=== PATIENT | male | born 1940 | race Caucasian/White ===

== ENCOUNTER 2016-07-31 05:39 | Inpatient (IN) | payer OTHER ==
--- NOTE | 2016-07-11 11:59 | PAT Medication Instructions ---
Service Date Jul 11, 2016. Current Home Medication List Flaxseed (Linseed) (Flaxseed Oil), 1,200 MG PO QAM Lisinopril/Hctz (Zestoretic 20MG/25MG), 1 TAB PO QAM [Dr. Delmi Berry Pkt], 1 PKT PO DAILY Medication Instructions For Your Scheduled Surgery [Dr. Delmi Berry Pkt], 1 PKT PO DAILY (per surgeon instructions) - Hold the following medications 2 weeks prior to surgery: Flaxseed (Linseed) (Flaxseed Oil), 1,200 MG PO QAM - Hold the following medications the morning of surgery: Lisinopril/Hctz (Zestoretic 20MG/25MG), 1 TAB PO QAM If you have any questions please call us at [phone] (Sheryl Pappas PA-C) or [phone] or [phone]
--- NOTE | 2016-07-11 12:45 | DIAGNOSTIC IMAGING REPORT ---
CHEST 2 VIEWS ROUTINE CLINICAL HISTORY: Preoperative chest COMPARISON STUDY: No previous studies for comparison. FINDINGS: The cardiac and mediastinal contours are normal. There is no evidence of focal pulmonary consolidation. There is no evidence of failure. No pleural effusions are visualized.[ IMPRESSION: No active disease in the chest. Electronically signed by: Jesus Craig M.D. 07/11/2016 12:42 PM Dictated Date/Time: 07/11/2016 12:42 PM
[2016-07-11 12:52] LABS: BASO % 0.9 %; BASO ABS # 0.06 K/uL (0-0.2); COMPLETE YES; HEMATOCRIT 44.6 % (42-52); IG% 0.2 %; LYMPH % 31.8 %; LYMPH ABS # 2.11 K/uL (1.2-3.4); MEAN CELL VOLUME 90.5 fL (80-100); MEAN CORPUSCULAR HEMOGLOBIN 30.6 pg (25-34); MEAN CORPUSCULAR HGB CONC 33.9 g/dl (32-36); MEAN PLATELET VOLUME 9.5 fL (7.4-10.4); MONO % 9.6 %; NEUT % 55.5 %; PLATELET COUNT 270 K/uL (130-400); RED BLOOD COUNT 4.93 M/uL (4.7-6.1); WHITE BLOOD COUNT 6.64 K/uL (4.8-10.8)
[2016-07-11 12:53] LABS: PARTIAL THROMBOPLASTIN RATIO 1.3; PROTHROMBIN TIME (PATIENT) 10.7 SECONDS (9.0-12.0)
[2016-07-11 13:08] LABS: URINE APPEARANCE CLEAR (CLEAR); URINE BILIRUBIN NEG (NEG); URINE COLOR YELLOW; URINE EPITHELIAL CELL AUTO 0-5 /lpf (0-5); URINE NITRITE NEG (NEG); URINE SPECIFIC GRAVITY 1.013 (1.000-1.030); UROBILINOGEN NEG (NEG); ZZUR CULT IF INDIC CLEAN CATCH NO
[2016-07-11 13:09] LABS: MANUAL MICROSCOPIC REQUIRED? NO; REVIEW REQ? NO
[2016-07-11 13:13] LABS: BUN/CREATININE RATIO 16.4 (10-20); CALCIUM 8.7 mg/dl (8.5-10.1); CREATININE 1.5 mg/dl (0.60-1.40); POTASSIUM 4.2 mmol/L (3.5-5.1)
[~2016-07-31] VITALS: Ht 167.6 cm; Wt 86.0 kg
[2016-07-31] VITALS (8 sets, daily range): BP systolic 100–159; BP diastolic 61–82; PULSE 61–79; TEMP 36.2–36.5; O2SAT 95–98; Ht 167.6 cm; Wt 86.0 kg
[~2016-07-31 05:39] MED LIST: FLAX12003 PO; LISI-788 PO; [UNRECOGNIZED DRUG - REMARK] PO
[2016-07-31] MEDS ORDERED: CEFAZOLIN 2000 MG/60 ML D5W 60 ML IV SCH (06:00)
[2016-07-31] MEDS ORDERED: LACTATED RINGER'S 1000ML 500 ML IV ONE (06:00)
[2016-07-31] MEDS ORDERED: METOCLOPRAMIDE HCL 10 MG TAB PO SCH (06:00)
[2016-07-31] MEDS ORDERED: OXYCODONE HCL 10 MG TABCR (OXYCONTIN) PO SCH (06:00)
[2016-07-31] MEDS ORDERED: ROPIVACAINE 5MG/ML 30 ML 150 MG, BUPIVACAINE/EPINEPHR 0.5% MPF 30 ML, KETOROLAC TROMETH... INFIL SCH ×7 (06:00)
[2016-07-31] MEDS ORDERED: FAMOTIDINE 20 MG TAB PO SCH (06:00)
[2016-07-31] MEDS ORDERED: DEXAMETHASONE 4 MG TAB PO SCH (06:00)
[2016-07-31] MEDS ORDERED: CeleBREX 200 MG CAP PO SCH (06:00)
[2016-07-31] MEDS ORDERED: POLYMYXIN B SULFATE 100,000 UNITS in NSS 100ML IR SCH (06:00)
[2016-07-31] MEDS ORDERED: VANCOMYCIN INJ 400 MG in NSS 100ML IR SCH (06:00)
[2016-07-31] MEDS ORDERED: ACETAMINOPHEN 500 MG TAB PO SCH (06:00)
[2016-07-31] MEDS ORDERED: GABAPENTIN 300 MG CAP PO SCH (06:00)
[2016-07-31] MEDS ORDERED: LACTATED RINGER'S 1000ML 1,000 ML IV SCH ×2 (06:00)
[2016-07-31] MEDS: TRANEXAMIC ACID INJ 1,000 MG in SODIUM CHLORIDE 0.9% 100ML 100 ML IV SCH ×2 (06:30→08:21)
[2016-07-31] MEDS ORDERED: BUPIVACAINE 0.25% 30 ML VIAL ONE (06:31)
[2016-07-31] MEDS ORDERED: BUPIVACAINE 0.5 % 5 MG/1 ML PF 10ML VIAL ONE (06:31)
--- NOTE | 2016-07-31 06:53 | History & Physical Bridge Note ---
H&P Re-Evaluation Bridge Note: I have examined the patient, reviewed the History & Physical and in the interval since the performance of the History & Physical I have noted the following changes of clinical significance: No changes noted
[2016-07-31] MEDS ORDERED: ORTHO JOINT ANESTHETIC ONE (07:00)
[2016-07-31] MEDS ORDERED: POVIDONE-IODINE OP SOLN 30 ML BTL ONE (07:01)
[2016-07-31] MEDS ORDERED: BUPIVACAINE/EPINEPHRINE 0.25% 1:200,000 30 ML VIAL ONE (07:01)
[2016-07-31] MEDS ORDERED: BACITRACIN 50000 UNIT VIAL ONE (07:02)
[2016-07-31] MEDS ORDERED: MIDAZOLAM HCL 1 MG/ML 2ML VIAL ONE (07:03)
[2016-07-31] MEDS ORDERED: PROPOFOL IV EMULSION 10 MG/ML 20 ML VIAL IV ONE (07:03)
[2016-07-31] MEDS ORDERED: LIDOCAINE HCL 2% 2 ML VIAL (20MG/ML) ONE (07:03)
[2016-07-31] MEDS ORDERED: FENTANYL CITRATE INJ 50 MCG/1 ML 2 ML VIAL ONE (07:03)
[2016-07-31] MEDS ORDERED: EpHEDrine SULFATE INJ 50 MG/ML AMP IV PRN (07:15)
[2016-07-31] MEDS ORDERED: FENTANYL CITRATE INJ 50 MCG/1 ML 2 ML VIAL IV PRN (07:15)
[2016-07-31] MEDS ORDERED: ONDANSETRON INJ 2 MG/ML 2 ML VIAL IV PRN ×2 (07:15→10:00)
[2016-07-31] MEDS ORDERED: ATROPINE SULFATE 0.1 MG/ML 5ML SYR IV PRN (07:15)
--- NOTE | 2016-07-31 07:23 | HISTORY & PHYSICAL EXAMINATION ---
DATE OF ADMISSION: 07/31/2016 CHIEF COMPLAINT: Bilateral knee pain, right greater than left. HISTORY OF PRESENT ILLNESS: Mr. Tilley is a 75-year-old male, with a history of bilateral knee pain. He rates his pain as 10/10. He has pain with his daily activities. He has limited standing and walking tolerance. The pain is worse with weightbearing. The patient has had injections, knee bracing, home exercise program and anti-inflammatories over the years without relief. He has failed conservative treatments and is scheduled for a staged total knee replacement. PAST MEDICAL HISTORY: Hypertension. He denies heart disease, diabetes or DVT. PAST SURGICAL HISTORY: Cataract extraction, vasectomy and lithotripsy. SOCIAL HISTORY: The patient denies alcohol or tobacco use. He lives in a single gabino home. He is and retired. FAMILY HISTORY: Negative for DVT. MEDICATIONS: Lisinopril 20/25 mg daily, flaxseed oil 1200 mg daily. ALLERGIES: None. REVIEW OF SYSTEMS: See HPI; 10 other systems reviewed were all negative. PHYSICAL EXAMINATION: VITAL SIGNS: Height 5 feet 6 inches, weight 191 pounds. BMI is 31. GENERAL: This is a well-developed, well-nourished male who is alert and oriented x3. Mood and affect are appropriate. HEENT: Normocephalic and atraumatic. Mucous membranes are moist and intact. NECK: Supple without lymphadenopathy. HEART: Regular rate and rhythm without murmurs, rubs or gallops. LUNGS: Clear to auscultation without wheezes or rhonchi. ABDOMEN: Soft and nontender. Bowel sounds are equal and active. EXTREMITIES: No ecchymosis, redness or warmth. He has varus deformity. Range of motion is from 3-120 degrees with +1 to 2 medial laxity. He is neurovascularly intact with +5/5 strength. X-RAY EXAMINATION: AP and lateral views show joint space narrowing and osteophyte formation mainly in the medial compartment. IMPRESSION: Degenerative joint disease, right knee. PLAN: The patient will be admitted for a right total knee arthroplasty. We will plan on aspirin for DVT prophylaxis. The patient will have [facility] for home physical therapy.
[2016-07-31] MEDS ORDERED: LABETALOL HCL IV 5 MG/ML 20ML IV ONE (09:22)
--- NOTE | 2016-07-31 09:47 | [facility] Post Operative Brief Note ---
Immediate Operative Summary Operative Date July 31, 2016. Pre-Operative Diagnosis Right Knee Degenerative Joint Disease Post-Operative Diagnosis Same as preop Procedure(s) Performed Right Total Knee Arthroplasty Surgeon Dr. Rosendo freeman Artificial Pearl Maker Surgeon(s) [place] PA-C Estimated Blood Loss 50 ml Findings djd Specimens A. Right Knee Bone and Tissue Complication(s) None Disposition Recovery Room / PACU
[2016-07-31] MEDS ORDERED: ALUMINUM/MAGNESIUM/SIMETH (MAALOX MAX) 30 ML UDC PO PRN (10:00)
[2016-07-31] MEDS ORDERED: SOD PHOSPHATE/SOD BIPHOSPHATE ENEMA 132 ML BTL PR PRN (10:00)
[2016-07-31] MEDS ORDERED: ZOLPIDEM TARTRATE 5 MG TAB PO PRN (10:00)
[2016-07-31] MEDS ORDERED: TRAMADOL HCL 50 MG TAB PO PRN (10:00)
[2016-07-31] MEDS ORDERED: TAMSULOSIN HCL 0.4 MG CAP PO PRN (10:00)
[2016-07-31] MEDS ORDERED: DiphenhydrAMINE HCL 50 MG/ML VIAL IV PRN (10:00)
[2016-07-31] MEDS ORDERED: KETOROLAC TROMETHAMINE 15 MG/ML VIAL IV. PRN (10:00)
[2016-07-31] MEDS ORDERED: MoRPHine SULFATE 2 MG/ML CARP IV PRN (10:00)
[2016-07-31] MEDS ORDERED: METOCLOPRAMIDE HCL INJ 5 MG/ML 2 ML VIAL IV PRN (10:00)
[2016-07-31] MEDS ORDERED: BISACODYL 10 MG SUPP PR PRN (10:00)
[2016-07-31] MEDS ORDERED: OXYCODONE HCL IR 5 MG TAB (IMMEDIATE RELEASE) PO PRN (10:00)
[2016-07-31] MEDS ORDERED: MAGNESIUM HYDROXIDE SUSP 30 ML UDC PO PRN (10:00)
--- NOTE | 2016-07-31 10:41 | Anesthesiology Progress Note ---
Anesthesia Post Op Note Date & Time July 31, 2016 at 10:41 Vital Signs Pain Intensity: 0 Vital Signs Past 12 Hours Date Time Temp Pulse Resp B/P Pulse Ox O2 Delivery O2 Flow Rate FiO2 07/31/16 10:30 67 12 110/61 95 Nasal Cannula 2 07/31/16 10:21 36.4 73 14 101/56 96 Nasal Cannula 2 07/31/16 06:36 36.5 73 16 159/82 96 Room Air Notes Mental Status: alert / awake / arousable, participated in evaluation Pt Amnestic to Procedure: Yes Nausea / Vomiting: adequately controlled Pain: adequately controlled Airway Patency, RR, SpO2: stable & adequate BP & HR: stable & adequate Hydration State: stable & adequate Neuraxial Anesthesia: was administered, sensory block is resolving Anesthetic Complications: no major complications apparent
--- NOTE | 2016-07-31 11:00 | DIAGNOSTIC IMAGING REPORT ---
RIGHT KNEE 1 OR 2 VIEWS ROUTINE CLINICAL HISTORY: Postoperative evaluation. COMPARISON: None FINDINGS: Alignment of the total right knee arthroplasty is anatomic. There is no fracture or unexpected radiopaque foreign body. Drains are in place. IMPRESSION: Expected findings following total right knee arthroplasty. Electronically signed by: Barry Ortiz M.D. 07/31/2016 10:59 AM Dictated Date/Time: 07/31/2016 10:59 AM
[2016-07-31] MEDS: D5W AND 1/2NSS + 20MEQ KCL 1,000 ML IV SCH ×2 (11:55→21:20)
[2016-07-31] MEDS: ACETAMINOPHEN 500 MG TAB PO SCH ×2 (13:34→21:12)
[2016-07-31] MEDS: CEFAZOLIN IV 2,000 MG in DEXTROSE 5% 50ML 50 ML IV SCH ×2 (15:42→23:58)
[2016-07-31] MEDS ORDERED: TRANEXAMIC ACID INJ 1,000 MG in SODIUM CHLORIDE 0.9% 100ML 100 ML IV SCH (16:00)
[2016-07-31] MEDS ORDERED: SENNA 8.6 MG TAB PO SCH (21:00)
[2016-07-31] MEDS: ASPIRIN 81 MG ECTAB PO SCH (21:11)
[2016-07-31] MEDS: OXYCODONE HCL 10 MG TABCR (OXYCONTIN) PO SCH (21:12)
--- NOTE | 2016-08-01 01:56 | OPERATIVE REPORT ---
DATE OF OPERATION: 07/31/2016 PREOPERATIVE DIAGNOSIS: Degenerative arthritis, right knee. POSTOPERATIVE DIAGNOSIS: Same. PROCEDURE: Right total knee with patient-matched implant. SURGEON: Dr. Awad. OUTSIDE PRODUCTION INSPECTOR: ANDRE Rodríguez. ANESTHESIA: Spinal. BLOOD LOSS: 50 mL REPLACEMENT FLUIDS: 1500 mL crystalloid. DRAINS: Hemovac x2. CULTURES: None. COMPLICATIONS: None. COMPONENTS USED: Felipe \T\ Nephew Jourloda knee system: Femur size 6, tibia size 6 x 12, patella size 35. NOTE: ANDRE Rodríguez, was present and assisted throughout due to the complicated nature of this case. He helped with preparation and setup, first assisted throughout, and personally closed the capsule, subcutaneous and skin layers, and applied the postop dressing. DESCRIPTION: Following satisfactory spinal, the patient was supine. Tourniquet was placed but not inflated. The lower extremity was prepared with ChloraPrep and draped sterilely. Following a surgical timeout, a midline incision was made with a median parapatellar arthrotomy. The knee showed grade 4 changes, most marked in the medial and patellofemoral compartments. The cruciate ligaments were excised. The patient-matched femoral block was applied. Femoral distal rotation and resection were set and completed. The 4-in-1 block was used to finish preparation of the femur. The patient-matched tibial block was applied. Tibial resection was completed. Patella was freehand cut. Soft tissue balancing was completed and a trial reduction showed good tensioning and stability on the collateral ligaments, stable range of motion, and the patella tracked well. The trial components were removed. The capsule was prepared with the orthopedic cocktail, and after irrigation, the components were cemented using Simplex G cement. A Betadine soak was performed. When the cement had hardened, the Betadine was irrigated. Two drains were placed. The arthrotomy was closed with a running suture of 0 V-Loc and reinforced with 1 Vicryl. The subcutaneous tissues were closed with 2-0 Vicryl, the skin with a running subcuticular stitch of 3-0 V-Loc. Dermabond and a dry dressing were applied. The patient was returned to his bed in stable condition. I attest to the content of the Intraoperative Record and any orders documented therein. Any exceptio ns are noted below.
[2016-08-01 03:25] VITALS: BP 117/57; PULSE 61; TEMP 36.3; O2SAT 97
[2016-08-01] MEDS: ACETAMINOPHEN 500 MG TAB PO SCH (05:18)
[2016-08-01 06:10] LABS: HEMATOCRIT 36.1 % (42-52); MEAN CELL VOLUME 89.8 fL (80-100); MEAN CORPUSCULAR HEMOGLOBIN 30.3 pg (25-34); MEAN CORPUSCULAR HGB CONC 33.8 g/dl (32-36); MEAN PLATELET VOLUME 9.4 fL (7.4-10.4); PLATELET COUNT 247 K/uL (130-400); RED BLOOD COUNT 4.02 M/uL (4.7-6.1); WHITE BLOOD COUNT 17.86 K/uL (4.8-10.8)
[2016-08-01 06:41] LABS: BUN/CREATININE RATIO 15.4 (10-20); CALCIUM 7.7 mg/dl (8.5-10.1); CREATININE 1.8 mg/dl (0.60-1.40); POTASSIUM 4.4 mmol/L (3.5-5.1)
--- NOTE | 2016-08-01 07:48 | Orthopedic Progress Note ---
Orthopedic Progress Note Date of Service August 01, 2016. Subjective Post OP Day: 1 Reports: feeling well, Denies: SOB, calf pain, chest pain, light headedness, nausea / vomiting Objective calves soft nontender, N/V intact, dressing C/D/I, A&O x3, toes mobile, hemovac drainage (200/150CC PER SHIFT) Date Time Temp Pulse Resp B/P Pulse Ox O2 Delivery O2 Flow Rate FiO2 08/01/16 03:25 36.3 61 16 117/57 97 Room Air 08/01/16 00:02 Room Air 07/31/16 23:05 36.3 62 18 107/64 95 Room Air 07/31/16 20:00 36.3 67 18 105/61 95 Room Air 07/31/16 19:00 Room Air 07/31/16 15:07 36.2 61 18 108/62 98 Nasal Cannula 2.0 07/31/16 13:13 36.4 67 16 100/63 97 2.0 07/31/16 12:10 36.3 68 16 108/65 97 Nasal Cannula 2.0 07/31/16 11:49 Nasal Cannula 2.0 07/31/16 11:40 67 16 108/62 97 Nasal Cannula 2.0 07/31/16 11:10 36.3 79 16 134/76 98 Nasal Cannula 2.0 07/31/16 11:00 71 14 115/69 97 Nasal Cannula 2 07/31/16 10:50 69 12 103/58 94 Nasal Cannula 2 07/31/16 10:40 36.0 68 17 102/53 97 Nasal Cannula 2 07/31/16 10:30 67 12 110/61 95 Nasal Cannula 2 07/31/16 10:21 36.4 73 14 101/56 96 Nasal Cannula 2 Laboratory Results 24 Hours: Test 08/01/16 05:20 Hematocrit 36.1 % Hemoglobin 12.2 g/dL Assessment & Plan Assessment: POD#1 RIGHT TKA Inhouse Planning Pain Management: Celebrex, Oxycontin, PO Tylenol, Oxy IR DVT Prophylaxis: TEDs, SCDs, ASA Discharge Planning Discharge Planning: home with home health ([facility] HOME TODAY WITH [facility])
[2016-08-01] MEDS ORDERED: RXC5 PO (07:50)
[2016-08-01] MEDS ORDERED: ASPEC81 PO (07:50)
[2016-08-01] MEDS ORDERED: ONDA8TAB6 PO (07:50)
[2016-08-01] MEDS ORDERED: CLB200 PO (07:50)
[2016-08-01] MEDS ORDERED: ACET-1138 PO (07:50)
[2016-08-01] MEDS ORDERED: MORP-157 PO (07:50)
[2016-08-01] MEDS ORDERED: SNK PO (07:50)
--- NOTE | 2016-08-01 07:51 | Discharge Instructions ---
Discharge Instructions Date of Service August 01, 2016. Admission Reason for Admission: Right Knee Degenerative Arthritis Discharge Discharge Diagnosis / Problem: SP RIGHT TKA Discharge Goals Goal(s): Decrease discomfort, Improve function, Increase independence Activity Recommendations Activity Limitations: per Instructions/Follow-up section . Instructions / Follow-Up Instructions / Follow-Up ACTIVITY RECOMMENDATIONS: SELF CARE INSTRUCTIONS AFTER TOTAL KNEE REPLACEMENT A. You may need to continue a physical therapy program after discharge from the hospital. There are several options available to you. Your doctor will assist you in selecting the best one for you. 1. An out-patient facility 2 to 3 times a week for therapy or home therapy. 2. Continue working on all exercises taught to you in the hospital. Your goals should be to increase bending of your knee to 90 degrees and beyond and to fully straighten your knee. B. You may progress at your own pace from walking with a walker or crutches to a cane; then to no assistive devices. C. Make walking a part of your daily routine. Be up as much as comfortable with rest periods throughout the day. Rest with leg elevation is very important. Use the ice wrap frequently for the first 3-4 weeks. D. There are no restrictions on activities. You may ride in a car, shop, participate in toll ticket clerk and all social activities. E. Wear the long elastic stockings (ANA hose) 20 hours a day for 2 weeks after surgery. They can be removed several times a day for laundering and for a bath. F. You may shower, no tub baths until cleared by your doctor. SPECIAL CARE INSTRUCTIONS: VERY IMPORTANT TO READ AND REVIEW A. There are a few signs you need to watch for after you are home. Call [facility] if you notice any of the followin. Increased severe knee pain. Some pain is expected especially when you exercise. 2. Increased swelling in your leg or knee; pain or swelling of the calf muscle in either lower leg. 3. Any fluid drainage from the incision. 4. Shortness of breath or chest pain. B. Please call [facility] at if you have any concerns or questions about your operation or recovery. The doctor or his nurse will return your call promptly. C. You must take antibiotics before dental work, bladder, bowel or other surgery. Your doctor will provide you with a permanent care to carry describing this precaution. IMPORTANT: * REMEMBER TO TAKE ASPIRIN, 81 MG, TWICE DAILY FOR 4 WEEKS UNLESS OTHERWISE DIRECTED. THIS IS YOUR BLOOD THINNER. * HIGH RISK PATIENTS MAY BE PRESCRIBED A STRONGER BLOOD THINNER. THIS WILL BE PROVIDED AT DISCHARGE. * CALL IF INCREASED PAIN, REDNESS, DRAINAGE OR FEVER GREATER THAT 101. * WEAR ANA HOSE 20 HOURS PER DAY FOR 2 WEEKS. DERMABOND Prineo- This is a mesh tape dressing that is covered with glue. It should remain in place until the incision is properly healed, usually 10-14 days. This dressing is designed to naturally slough off. You may trim the excess mesh tape as it peels off. Incision may be briefly wet in a shower. Dry immediately by blotting with a clean, dry towel. Do not bath or swim until instructed by your doctor. Do not scratch, rub, or pick at the dressing. Do not apply any topical ointments or lotions until dressing is completely removed and/or instructed by your doctor. There may be a small piece of suture material at one end of your incision. Do not pull or trim this. If it is bothersome or catching on clothing, you may cover it with a band-aid. FOLLOW UP VISIT: If appointment is not already scheduled: Please call [facility] to make a follow-up appointment for 2 weeks after your surgery at . Current Hospital Diet Patient's current hospital diet: Regular Diet Discharge Diet Recommended Diet: Regular Diet Procedures Procedures Performed: Right Total Knee Arthroplasty Pending Studies Studies pending at discharge: no Medical Emergencies . Who to Call and When: Medical Emergencies: If at any time you feel your situation is an emergency, please call 911 immediately. . Non-Emergent Contact Non-Emergency issues call your: Surgeon . "Provider Documentation" section prepared by Leah Reid. . VTE Core Measure Inpt VTE Proph given/why not?: Other Anticoagulation, T.E.DTalat Patel, SCD's [place] Drug Monitoring Program Search Results: patient reviewed within database, no issues identified
[2016-08-01] MEDS: D5W AND 1/2NSS + 20MEQ KCL 1,000 ML IV SCH (07:52)
--- NOTE | 2016-08-01 08:09 | Anesthesiology Progress Note ---
Anesthesia Post Op Note Date & Time August 01, 2016 at 08:08 Vital Signs Pain Intensity: 0.0 Vital Signs Past 12 Hours Date Time Temp Pulse Resp B/P Pulse Ox O2 Delivery O2 Flow Rate FiO2 08/01/16 03:25 36.3 61 16 117/57 97 Room Air 08/01/16 00:02 Room Air 07/31/16 23:05 36.3 62 18 107/64 95 Room Air Notes Mental Status: alert / awake / arousable, participated in evaluation Pt Amnestic to Procedure: Yes Nausea / Vomiting: adequately controlled Pain: adequately controlled Airway Patency, RR, SpO2: stable & adequate BP & HR: stable & adequate Hydration State: stable & adequate Neuraxial Anesthesia: sensory block resolved Anesthetic Complications: no major complications apparent
[2016-08-01 08:11] VITALS: BP 142/70; PULSE 72; TEMP 36.4; O2SAT 96
[2016-08-01] MEDS: OXYCODONE HCL 10 MG TABCR (OXYCONTIN) PO SCH (08:19)
[2016-08-01] MEDS: ASPIRIN 81 MG ECTAB PO SCH (08:19)
[2016-08-01] MEDS ORDERED: PANTOprazole SOD 40 MG TAB PO SCH (09:00)
[2016-08-01] MEDS ORDERED: MULTIVITAMIN TAB PO SCH (09:00)
[2016-08-01] MEDS ORDERED: LISINOPRIL/HCTZ 20/25MG TAB PO SCH (09:00)
[2016-08-01 09:12] VITALS: O2SAT 96
[2016-08-01 09:44] VITALS: BP 142/70; PULSE 72; TEMP 36.4; O2SAT 96
[2016-08-01 11:46] VITALS: BP 132/72; PULSE 68; TEMP 36.6; O2SAT 96
--- NOTE | 2016-08-03 01:16 | DISCHARGE SUMMARY ---
DISCHARGE DIAGNOSIS: Degenerative joint disease, right knee. SECONDARY DIAGNOSIS: Hypertension. CONSULTS: None. COMPLICATIONS: None. PROCEDURES: Right total knee arthroplasty performed by Dr. Jose Awad on 07/31/2016. BRIEF HISTORY: As dictated in history and physical. HOSPITAL SUMMARY: The patient was admitted on the above date and had the above-noted surgery performed, which he tolerated well. On the first postoperative day, he was feeling well and had no complaints. Calves were soft, nontender, neurovascularly intact. Dressings clean, dry and intact. Toes were mobile. Vital signs were stable. He was afebrile. Hemoglobin was 12.2 and he was started on physical therapy protocol and continued on DVT prophylaxis and pain management. He was progressing well with his physical therapy and remaining stable and it was felt he could be discharged to home with home health services on 08/01/2016. For further review, please see chart. LAB AND X-RAY DATA: As per chart. DISCHARGE INSTRUCTIONS: The patient was discharged to home in satisfactory condition on 08/01/2016. DIET: Regular. ACTIVITY: Follow TKA instruction sheets and special care instructions as noted. Follow up with Dr. Awad in 2 weeks. The patient to call for an appointment if one has not been made for you. DISCHARGE MEDICATIONS: Acetaminophen 1000 mg p.o. q. 8 hours, aspirin 81 mg p.o. b.i.d., Celebrex 200 mg p.o. every day, morphine sulfate 15 mg p.o. q. 12 hours, Zofran 8 mg p.o. q. 8 hours p.r.n., oxycodone 5-10 mg p.o. q. 4 hours p.r.n., and Senna 17.2 mg p.o. at bedtime. Resume taking flaxseed 1200 mg p.o. q.a.m., Zestoretic 20/25 one tab p.o. q.a.m. and Dr Awad vitamin pack 1 tab p.o. daily. MTDD
[2016-08-03] MEDS ORDERED: CeleBREX 200 MG CAP PO SCH (08:00)
[2016-08-10] MEDS ORDERED: TRAM-10 PO (08:31)
[2016-08-10] MEDS ORDERED: SENN-61 PO (08:31)
== END 2016-08-01 13:15 | disposition home health service (06) | DRG 470 ==
LOC: ENRESERVTM → ENRESERVDT → C.ACU 05:39 → C.3E 06:30
PROVIDERS: ADMIT Orthopaedic Surgery; ATTEND Orthopaedic Surgery
PROC: 0SRC0J9 Replacement of Right Knee Joint with Synthetic Substitute, Cemented, Open Approach (ICD-10-PCS; principal; 2016-07-31 08:15)
DX: M17.11 Unilateral primary osteoarthritis, right knee (principal); E66.9 Obesity, unspecified; Z68.31 Body mass index [BMI] 31.0-31.9, adult; N18.3 Chronic kidney disease, stage 3 (moderate); N40.0 Benign prostatic hyperplasia without lower urinary tract symptoms; F17.210 Nicotine dependence, cigarettes, uncomplicated; F17.290 Nicotine dependence, other tobacco product, uncomplicated; I12.9 Hypertensive chronic kidney disease with stage 1 through stage 4 chronic kidney disease, or unspecified chronic kidney disease; Z79.899 Other long term (current) drug therapy

== ENCOUNTER 2016-09-04 06:10 | Inpatient (IN) | payer OTHER ==
[2016-08-24 15:38] LABS: BASO % 0.6 %; BASO ABS # 0.06 K/uL (0-0.2); COMPLETE YES; EOS % 1.8 %; HEMATOCRIT 41.3 % (42-52); IG% 0.2 %; LYMPH % 24.8 %; LYMPH ABS # 2.67 K/uL (1.2-3.4); MEAN CELL VOLUME 90.6 fL (80-100); MEAN CORPUSCULAR HEMOGLOBIN 29.4 pg (25-34); MEAN CORPUSCULAR HGB CONC 32.4 g/dl (32-36); MEAN PLATELET VOLUME 8.9 fL (7.4-10.4); MONO % 9.2 %; NEUT % 63.4 %; PLATELET COUNT 545 K/uL (130-400); RED BLOOD COUNT 4.56 M/uL (4.7-6.1); WHITE BLOOD COUNT 10.77 K/uL (4.8-10.8)
[2016-08-24 15:46] LABS: URINE APPEARANCE CLOUDY (CLEAR); URINE COLOR DK YELLOW; URINE NITRITE NEG (NEG); URINE SPECIFIC GRAVITY 1.027 (1.000-1.030); UROBILINOGEN NEG (NEG); ZZUR CULT IF INDIC CLEAN CATCH NO
[2016-08-24 15:55] LABS: MANUAL MICROSCOPIC REQUIRED? NO; REVIEW REQ? NO; URINE BILIRUBIN NEG (NEG)
[2016-08-24 15:56] LABS: PARTIAL THROMBOPLASTIN RATIO 1.3; PROTHROMBIN TIME (PATIENT) 10.8 SECONDS (9.0-12.0)
[2016-08-24 16:00] LABS: CREATININE 1.5 mg/dl (0.60-1.40)
--- NOTE | 2016-09-01 12:32 | HISTORY & PHYSICAL EXAMINATION ---
DATE OF ADMISSION: 09/04/2016 CHIEF COMPLAINT: Left knee pain. HISTORY OF PRESENT ILLNESS: Mr. Tilley is a 75-year-old male with a multiple year history of left knee pain. The patient only recently had his right knee replaced and has done well. He still complains of 10/10 pain on the left side. He has failed conservative treatment and is scheduled to proceed with left knee replacement. PAST MEDICAL HISTORY: Hypertension. He denies heart disease, diabetes or DVT. PAST SURGICAL HISTORY: Cataract extraction, vasectomy, lithotripsy. SOCIAL HISTORY: The patient denies alcohol or tobacco use. He lives in a single story home. He is and retired. FAMILY HISTORY: Negative for DVT. MEDICATIONS: Flaxseed oil 1 daily, lisinopril/HCTZ 20/25 mg daily. ALLERGIES: None. REVIEW OF SYSTEMS: See HPI. Ten other systems reviewed, all negative. PHYSICAL EXAMINATION: VITAL SIGNS: Height 5 foot 6 inches, weight 191 pounds. BMI is 30. GENERAL: This is a well-developed, well-nourished male who is alert and oriented x3. Mood and affect are appropriate. HEAD, EYES, EARS, NOSE, AND THROAT: Normocephalic, atraumatic. Mucous membranes are moist and intact. NECK: Supple without lymphadenopathy. HEART: Regular rate and rhythm without murmurs, rubs or gallops. LUNGS: Clear to auscultation without wheezes or rhonchi. ABDOMEN: Soft and nontender. Bowel sounds are equal. EXTREMITIES: No ecchymosis, redness or warmth. He has varus deformity. Range of motion is from 3-120 degrees with +1 to 2 laxity. He is neurovascularly intact with +5/5 strength. X-RAY EXAMINATION: AP and lateral views show joint space narrowing and osteophyte formation. IMPRESSION: Degenerative joint disease, left knee. PLAN: The patient will be admitted for a left total knee arthroplasty. We will plan on aspirin for DVT prophylaxis. The patient does not want any narcotics. He prefers tramadol for pain control. He will have [facility] for home physical therapy.
[~2016-09-04] VITALS: Ht 167.6 cm; Wt 85.9 kg
[2016-09-04] VITALS (14 sets, daily range): BP systolic 78–116; BP diastolic 39–76; PULSE 72–87; TEMP 36.4–36.9; O2SAT 96–99; Ht 167.6 cm; Wt 85.9 kg
[~2016-09-04 06:10] MED LIST changes: +ACET-1138 PO; +ACETAMINOPHEN 500 MG TAB PO SCH; +ASPEC81 PO; +CEFAZOLIN 2000 MG/60 ML D5W 60 ML IV SCH; +CLB200 PO; +CeleBREX 200 MG CAP PO SCH; +DEXAMETHASONE 4 MG TAB PO SCH; +FAMOTIDINE 20 MG TAB PO SCH; -FLAX12003 PO; +GABAPENTIN 300 MG CAP PO SCH; +LACTATED RINGER'S 1000ML 1,000 ML IV SCH; +LACTATED RINGER'S 1000ML IV SCH; +METOCLOPRAMIDE HCL 10 MG TAB PO SCH; +ONDA8TAB6 PO; +OXYCODONE HCL 10 MG TABCR (OXYCONTIN) PO SCH; +POLYMYXIN B SULFATE 100,000 UNITS in NSS 100ML IR SCH; +ROPIVACAINE 5MG/ML 30 ML 150 MG, BUPIVACAINE/EPINEPHR 0.5% MPF 30 ML, KETOROLAC TROMETH... INFIL SCH; +SCOPOLAMINE 1.5 MG TDSY TD SCH; +SENN-61 PO; +SODIUM CHLORIDE 0.9% 1000ML 1,000 ML IV SCH; +SODIUM CHLORIDE 0.9% 1000ML 500 ML IV SCH; +SODIUM CHLORIDE 0.9% 500ML 500 ML IV SCH; +TRAM-10 PO; +TRAMADOL HCL 50 MG TAB PO SCH; +TRANEXAMIC ACID INJ 1,000 MG in SODIUM CHLORIDE 0.9% 100ML 100 ML IV SCH; +VANCOMYCIN INJ 400 MG in NSS 100ML IR SCH
[2016-09-04] MEDS ORDERED: BUPIVACAINE 0.25% 30 ML VIAL ONE (06:41)
[2016-09-04] MEDS ORDERED: MIDAZOLAM HCL 1 MG/ML 2ML VIAL ONE ×2 (06:42)
[2016-09-04] MEDS ORDERED: ORTHO JOINT ANESTHETIC ONE (07:13)
[2016-09-04] MEDS ORDERED: BUPIVACAINE/EPINEPHRINE 0.25% 1:200,000 30 ML VIAL ONE (07:14)
[2016-09-04] MEDS ORDERED: BACITRACIN 50000 UNIT VIAL ONE (07:14)
[2016-09-04] MEDS ORDERED: POVIDONE-IODINE OP SOLN 30 ML BTL ONE (07:14)
[2016-09-04] MEDS ORDERED: PROMETHAZINE HCL INJ 12.5 MG in SODIUM CHLORIDE 0.9% 50ML 50 ML IV PRN (07:15)
[2016-09-04] MEDS ORDERED: ONDANSETRON INJ 2 MG/ML 2 ML VIAL IV PRN ×2 (07:15→09:45)
[2016-09-04] MEDS ORDERED: EpHEDrine SULFATE INJ 50 MG/ML AMP IV PRN (07:15)
[2016-09-04] MEDS ORDERED: ATROPINE SULFATE 0.1 MG/ML 5ML SYR IV PRN (07:15)
[2016-09-04] MEDS ORDERED: FENTANYL CITRATE INJ 50 MCG/1 ML 2 ML VIAL IV PRN (07:15)
[2016-09-04] MEDS: TRANEXAMIC ACID INJ 1,000 MG in SODIUM CHLORIDE 0.9% 100ML 100 ML IV SCH ×2 (07:59→12:07)
[2016-09-04] MEDS: CEFAZOLIN 2000 MG/60 ML D5W 60 ML IV SCH ×2 (07:59→08:43)
[2016-09-04] MEDS ORDERED: EpHEDrine SULFATE 50MG/5ML SYR ONE (09:11)
[2016-09-04] MEDS ORDERED: LIDOCAINE HCL 2% 2 ML VIAL (20MG/ML) ONE (09:11)
[2016-09-04] MEDS ORDERED: PHENYLEPHRINE 100MCG/ML 5ML SYR ONE ×2 (09:11→09:33)
[2016-09-04] MEDS ORDERED: ONDANSETRON INJ 2 MG/ML 2 ML VIAL ONE (09:12)
[2016-09-04] MEDS ORDERED: PROPOFOL IV EMULSION 10 MG/ML 20 ML VIAL IV ONE (09:12)
--- NOTE | 2016-09-04 09:44 | [facility] Post Operative Brief Note ---
Immediate Operative Summary Operative Date Sep 04, 2016. Pre-Operative Diagnosis Left knee degenerative joint disease Post-Operative Diagnosis Left knee degenerative joint disease Procedure(s) Performed Left total knee arthroplasty Surgeon Dr. Jose Awad Show Operations Supervisor Surgeon(s) [place] PA-C Estimated Blood Loss 50cc Findings tricomp djd Specimens A. left knee bone and tissue Complication(s) None Disposition Recovery Room / PACU
[2016-09-04] MEDS ORDERED: TRAMADOL HCL 50 MG TAB PO PRN (09:45)
[2016-09-04] MEDS ORDERED: MAGNESIUM HYDROXIDE SUSP 30 ML UDC PO PRN (09:45)
[2016-09-04] MEDS ORDERED: TAMSULOSIN HCL 0.4 MG CAP PO PRN (09:45)
[2016-09-04] MEDS ORDERED: DiphenhydrAMINE HCL 50 MG/ML VIAL IV PRN (09:45)
[2016-09-04] MEDS ORDERED: ALUMINUM/MAGNESIUM/SIMETH (MAALOX MAX) 30 ML UDC PO PRN (09:45)
[2016-09-04] MEDS ORDERED: METOCLOPRAMIDE HCL INJ 5 MG/ML 2 ML VIAL IV PRN (09:45)
[2016-09-04] MEDS ORDERED: SOD PHOSPHATE/SOD BIPHOSPHATE ENEMA 132 ML BTL PR PRN (09:45)
[2016-09-04] MEDS ORDERED: BISACODYL 10 MG SUPP PR PRN (09:45)
[2016-09-04] MEDS ORDERED: MoRPHine SULFATE 2 MG/ML CARP IV PRN (09:45)
[2016-09-04] MEDS ORDERED: ZOLPIDEM TARTRATE 5 MG TAB PO PRN (09:45)
[2016-09-04] MEDS ORDERED: VASOPRESSIN 20 UNIT/ML VIAL ONE (10:24)
[2016-09-04] MEDS ORDERED: SODIUM CHLORIDE 0.9% INJ 10 ML VIAL ONE (10:24)
--- NOTE | 2016-09-04 10:56 | DIAGNOSTIC IMAGING REPORT ---
LEFT KNEE 2 VIEWS History: Left total knee arthroplasty. Degenerative arthritis. Postop. FINDINGS: The patient is status post a left total knee arthroplasty. The hardware is intact. No fracture or dislocation. Surgical drains are in place. IMPRESSION: Left total knee arthroplasty. No evidence for hardware complication. Electronically signed by: Sacha Quarles M.D. 09/04/2016 10:54 AM Dictated Date/Time: 09/04/2016 10:54 AM
--- NOTE | 2016-09-04 11:23 | Anesthesiology Progress Note ---
Anesthesia Post Op Note Date & Time Sep 04, 2016 at 11:21 Vital Signs Pain Intensity: 0 Vital Signs Past 12 Hours Date Time Temp Pulse Resp B/P (MAP) Pulse Ox O2 Delivery O2 Flow Rate FiO2 09/04/16 11:15 37.0 87 15 104/45 92 Nasal Cannula 2 09/04/16 11:05 85 14 97/49 94 Nasal Cannula 2 09/04/16 10:55 85 19 99/55 94 Nasal Cannula 2 09/04/16 10:45 85 14 85/45 94 Nasal Cannula 2 09/04/16 10:35 83 18 90/51 96 Nasal Cannula 2 09/04/16 10:25 88 14 88/48 92 Nasal Cannula 2 09/04/16 10:18 36.0 88 15 91/51 97 Nasal Cannula 2 09/04/16 06:55 36.9 84 20 116/76 96 Room Air Notes Mental Status: alert / awake / arousable, participated in evaluation Pt Amnestic to Procedure: Yes Nausea / Vomiting: adequately controlled Pain: adequately controlled Airway Patency, RR, SpO2: stable & adequate BP & HR: stable & adequate Hydration State: stable & adequate Neuraxial Anesthesia: was administered, sensory block is resolving Anesthetic Complications: no major complications apparent Patient was slightly hypotensive during procedure and immediately in PACU. Given that he had SAB along with recent lisinopril use, decided to give a total of 2 units of vasopressin along with gently fluid hydration. BP improved during his PACU stay and upon meeting discharge criteria his SBP was in 100's. Patient felt well without complaints of PONV. OK for transfer to floor.
[2016-09-04] MEDS ORDERED: D5W AND 1/2NSS + 20MEQ KCL 1,000 ML IV SCH (12:00)
[2016-09-04] MEDS ORDERED: NURSING VERBAL MED ORDER ONE (12:30)
--- NOTE | 2016-09-04 14:22 | Anesthesiology Progress Note ---
Anesthesia Progress Note Date of Service Sep 04, 2016. Progress Notes Called by floor nurses as patient had several systolic blood pressures in 80's. Patient had HR in 80's and denied any chest pains/pressures/shortness of breath/ dizziness. He stated he was started on his lisinopril about 6 weeks ago prior to his first orthopedic procedure. He stated afterwards that he was experiencing lightheadedness upon standing. Of note, he took his lisinopril on . I went to the floor to speak to the patient and he was conversant and again denied any symptoms. I decided to write for 500ml of 5% albumin and spoke with attending surgeon to stop his lisinopril until his BP recovers. Patient agreed with the plan and all questions were answered.
[2016-09-04] MEDS ORDERED: ALBUMIN HUMAN 25% 12.5 GM/50 ML VIAL IV ONE (14:30)
[2016-09-04] MEDS: ALBUMIN HUMAN 5% 12.5 GM/250 ML VIAL IV ONE ×2 (14:49→14:50)
[2016-09-04] MEDS: D5W AND 1/2NSS + 20MEQ KCL 1,000 ML IV SCH ×2 (14:51→23:35)
[2016-09-04] MEDS: CHECK SCOPOLAMINE PATCH PLACEMENT SCH ×2 (15:39→23:36)
[2016-09-04] MEDS ORDERED: TRANEXAMIC ACID INJ 1,000 MG in SODIUM CHLORIDE 0.9% 100ML 100 ML IV SCH (16:00)
[2016-09-04] MEDS: KETOROLAC TROMETHAMINE 15 MG/ML VIAL IV. SCH ×2 (16:16→20:07)
[2016-09-04] MEDS: CEFAZOLIN IV 2,000 MG in DEXTROSE 5% 50ML 50 ML IV SCH ×2 (16:49→23:35)
--- NOTE | 2016-09-04 17:37 | OPERATIVE REPORT ---
DATE OF OPERATION: 09/04/2016 PREOPERATIVE DIAGNOSIS: Degenerative arthritis, left knee. POSTOPERATIVE DIAGNOSIS: Same. PROCEDURE: Left total knee with patient matched implant. SURGEON: Dr. Awad. THERAPEUTIC CONSULTANT: ANDRE Rodríguez. ANESTHESIA: Spinal. BLOOD LOSS: 50 mL. REPLACEMENT FLUIDS: 1500 mL crystalloid. DRAINS: Hemovac x2. CULTURES: None. COMPLICATIONS: None. COMPONENTS USED: Felipe [employer] Nephew Journey Knee System: Femur size 6, tibia size 5 x 10, patella size 35. NOTE: ANDRE Rodríguez was present and assisted throughout due to the complicated nature of this case. He helped with preparation and set up, first assisted throughout and personally closed the capsule, subcutaneous and skin layers and applied the postoperative dressing. DESCRIPTION OF PROCEDURE: Following satisfactory spinal, the patient was supine. A tourniquet was placed but not inflated. The lower extremity was prepared with ChloraPrep and draped sterilely. Following a surgical time-out, a midline incision was made with a median trivector approach. The knee showed severe grade 4 changes throughout. The cruciate ligaments were excised, the patient matched femoral block was applied, femoral distal rotation and resection were set and completed and the 4-in-1 block was used to finish preparation of the femur. The patient matched tibial block was applied. Tibial resection was completed. Patella was freehand cut. Soft tissue balancing was completed and a trial reduction showed good tensioning stability on the collateral ligaments, stable range of motion, and the patella tracked well. The trial components were removed, the capsule was prepared with the orthopedic cocktail and after irrigation, the components were cemented with Simplex G cement. When the cement had hardened, the knee was checked and showed good stability. A Betadine soak had been performed. After irrigation, 2 drains were placed. The arthrotomy was closed with a running suture of 0 V-Loc, subcutaneous tissues with 2-0 Vicryl and the skin with a running subcuticular stitch of 3-0 V-Loc. Dermabond and a dry dressing were applied. The patient was returned to his bed in stable condition. I attest to the content of the Intraoperative Record and any orders documented therein. Any exception s are noted below.
[2016-09-04] MEDS: SENNA 8.6 MG TAB PO SCH (21:31)
[2016-09-04] MEDS: ACETAMINOPHEN 500 MG TAB PO SCH (21:32)
[2016-09-04] MEDS: ASPIRIN 81 MG ECTAB PO SCH (21:32)
[2016-09-05] VITALS (7 sets, daily range): BP systolic 96–120; BP diastolic 52–80; PULSE 61–76; TEMP 36.3–36.7; O2SAT 95–100
[2016-09-05] MEDS: KETOROLAC TROMETHAMINE 15 MG/ML VIAL IV. SCH ×4 (02:14→20:09)
[2016-09-05] MEDS: ACETAMINOPHEN 500 MG TAB PO SCH ×3 (05:44→21:41)
[2016-09-05] MEDS: CHECK SCOPOLAMINE PATCH PLACEMENT SCH ×2 (07:29→15:25)
[2016-09-05 08:05] LABS: HEMATOCRIT 27.2 % (42-52); MEAN CORPUSCULAR HEMOGLOBIN 31.1 pg (25-34); MEAN CORPUSCULAR HGB CONC 34.2 g/dl (32-36); MEAN PLATELET VOLUME 9.2 fL (7.4-10.4); PLATELET COUNT 221 K/uL (130-400); RED BLOOD COUNT 2.99 M/uL (4.7-6.1); WHITE BLOOD COUNT 14.09 K/uL (4.8-10.8)
--- NOTE | 2016-09-05 08:10 | Orthopedic Progress Note ---
Orthopedic Progress Note Date of Service Sep 05, 2016. Subjective Post OP Day: 1 Reports: feeling well, Denies: chest pain, SOB, nausea / vomiting, light headedness, calf pain Additional Notes: HAVING SOME POST OP HYPOTENSION. SEEMS BETTER THIS AM. SYSTOLICS 100s/90s Objective calves soft nontender, N/V intact, dressing C/D/I, A&O x3, toes mobile, hemovac drainage (255/50CC PER SHIFT) Date Time Temp Pulse Resp B/P (MAP) Pulse Ox O2 Delivery O2 Flow Rate FiO2 09/05/16 04:10 36.4 74 16 96/53 (67) 97 Room Air 09/04/16 23:35 Room Air 09/04/16 23:05 36.4 72 16 95/53 (67) 98 Room Air 09/04/16 20:18 36.4 79 16 100/60 (73) 98 Nasal Cannula 2.0 09/04/16 19:45 104/58 (73) 99 Room Air 09/04/16 19:24 97/59 (72) 09/04/16 16:15 76 98/58 (71) 09/04/16 15:30 77 90/50 (63) 09/04/16 15:21 36.4 77 16 94/53 (67) 99 Nasal Cannula 2.0 09/04/16 15:20 Nasal Cannula 2.0 09/04/16 14:28 80 16 87/42 (57) 98 Nasal Cannula 2.0 09/04/16 14:06 78/39 (52) 09/04/16 13:25 82 16 80/43 (55) 99 Nasal Cannula 2.0 09/04/16 12:30 36.5 84 16 89/55 (66) 98 Nasal Cannula 2.0 91/49 (63) 09/04/16 12:01 96 Nasal Cannula 2.0 09/04/16 12:00 87 16 90/48 (62) 96 Nasal Cannula 2.0 09/04/16 11:34 96 Nasal Cannula 2.0 09/04/16 11:15 37.0 87 15 104/45 92 Nasal Cannula 2 09/04/16 11:05 85 14 97/49 94 Nasal Cannula 2 09/04/16 10:55 85 19 99/55 94 Nasal Cannula 2 09/04/16 10:45 85 14 85/45 94 Nasal Cannula 2 09/04/16 10:35 83 18 90/51 96 Nasal Cannula 2 09/04/16 10:25 88 14 88/48 92 Nasal Cannula 2 09/04/16 10:18 36.0 88 15 91/51 97 Nasal Cannula 2 Laboratory Results 24 Hours: Test 09/05/16 07:41 Hematocrit 27.2 % Hemoglobin 9.3 g/dL Assessment & Plan Assessment: POD#1 SP LEFT TKA HYPOTENSION Inhouse Planning Pain Management: Celebrex, PO Tylenol, Oxy IR DVT Prophylaxis: TEDs, SCDs, ASA Discharge Planning Discharge Planning: home with home health (POSSIBLE DC HOME TODAY IF FEELING BETTER THIS AFTERNOON)
[2016-09-05] MEDS ORDERED: ACET-1138 PO (08:12)
[2016-09-05] MEDS ORDERED: CLB200 PO (08:12)
[2016-09-05] MEDS ORDERED: ASPEC81 PO (08:12)
[2016-09-05] MEDS ORDERED: TRAM-10 PO (08:13)
--- NOTE | 2016-09-05 08:13 | Discharge Instructions ---
Discharge Instructions Date of Service Sep 05, 2016. Admission Reason for Admission: Left Knee Degenerative Arthritis Discharge Discharge Diagnosis / Problem: SP LEFT TKA Discharge Goals Goal(s): Decrease discomfort, Improve function, Increase independence Activity Recommendations Activity Limitations: per Instructions/Follow-up section . Instructions / Follow-Up Instructions / Follow-Up ACTIVITY RECOMMENDATIONS: SELF CARE INSTRUCTIONS AFTER TOTAL KNEE REPLACEMENT A. You may need to continue a physical therapy program after discharge from the hospital. There are several options available to you. Your doctor will assist you in selecting the best one for you. 1. An out-patient facility 2 to 3 times a week for therapy or home therapy. 2. Continue working on all exercises taught to you in the hospital. Your goals should be to increase bending of your knee to 90 degrees and beyond and to fully straighten your knee. B. You may progress at your own pace from walking with a walker or crutches to a cane; then to no assistive devices. C. Make walking a part of your daily routine. Be up as much as comfortable with rest periods throughout the day. Rest with leg elevation is very important. Use the ice wrap frequently for the first 3-4 weeks. D. There are no restrictions on activities. You may ride in a car, shop, participate in heel cementer machine and all social activities. E. Wear the long elastic stockings (ANA hose) 20 hours a day for 2 weeks after surgery. They can be removed several times a day for laundering and for a bath. F. You may shower, no tub baths until cleared by your doctor. SPECIAL CARE INSTRUCTIONS: VERY IMPORTANT TO READ AND REVIEW A. There are a few signs you need to watch for after you are home. Call [facility] if you notice any of the followin. Increased severe knee pain. Some pain is expected especially when you exercise. 2. Increased swelling in your leg or knee; pain or swelling of the calf muscle in either lower leg. 3. Any fluid drainage from the incision. 4. Shortness of breath or chest pain. B. Please call [facility] at if you have any concerns or questions about your operation or recovery. The doctor or his nurse will return your call promptly. C. You must take antibiotics before dental work, bladder, bowel or other surgery. Your doctor will provide you with a permanent care to carry describing this precaution. IMPORTANT: * REMEMBER TO TAKE ASPIRIN, 81 MG, TWICE DAILY FOR 4 WEEKS UNLESS OTHERWISE DIRECTED. THIS IS YOUR BLOOD THINNER. * HIGH RISK PATIENTS MAY BE PRESCRIBED A STRONGER BLOOD THINNER. THIS WILL BE PROVIDED AT DISCHARGE. * CALL IF INCREASED PAIN, REDNESS, DRAINAGE OR FEVER GREATER THAT 101. * WEAR ANA HOSE 20 HOURS PER DAY FOR 2 WEEKS. DERMABOND Prineo- This is a mesh tape dressing that is covered with glue. It should remain in place until the incision is properly healed, usually 10-14 days. This dressing is designed to naturally slough off. You may trim the excess mesh tape as it peels off. Incision may be briefly wet in a shower. Dry immediately by blotting with a clean, dry towel. Do not bath or swim until instructed by your doctor. Do not scratch, rub, or pick at the dressing. Do not apply any topical ointments or lotions until dressing is completely removed and/or instructed by your doctor. There may be a small piece of suture material at one end of your incision. Do not pull or trim this. If it is bothersome or catching on clothing, you may cover it with a band-aid. FOLLOW UP VISIT: If appointment is not already scheduled: Please call [facility] to make a follow-up appointment for 2 weeks after your surgery at . Current Hospital Diet Patient's current hospital diet: Regular Diet Discharge Diet Recommended Diet: Regular Diet Procedures Procedures Performed: Left total knee arthroplasty Pending Studies Studies pending at discharge: no Medical Emergencies . Who to Call and When: Medical Emergencies: If at any time you feel your situation is an emergency, please call 911 immediately. . Non-Emergent Contact Non-Emergency issues call your: Surgeon . "Provider Documentation" section prepared by Leah Reid. . VTE Core Measure Inpt VTE Proph given/why not?: Other Anticoagulation, T.E.DTalat Patel, SCD's [place] Drug Monitoring Program Search Results: patient reviewed within database
[2016-09-05 08:32] LABS: BUN/CREATININE RATIO 13.9 (10-20); CREATININE 2.1 mg/dl (0.60-1.40)
[2016-09-05] MEDS: MULTIVITAMIN TAB PO SCH (08:46)
[2016-09-05] MEDS: D5W AND 1/2NSS + 20MEQ KCL 1,000 ML IV SCH ×2 (08:46→18:35)
[2016-09-05] MEDS: ASPIRIN 81 MG ECTAB PO SCH ×2 (08:46→20:44)
[2016-09-05] MEDS: PANTOprazole SOD 40 MG TAB PO SCH (08:46)
[2016-09-05] MEDS ORDERED: LISINOPRIL/HCTZ 20/25MG TAB PO SCH (09:00)
[2016-09-05 09:02] LABS: CALCIUM 7.2 mg/dl (8.5-10.1)
[2016-09-05] MEDS: SENNA 8.6 MG TAB PO SCH (20:44)
[2016-09-06] MEDS: CHECK SCOPOLAMINE PATCH PLACEMENT SCH ×2 (00:25→08:48)
[2016-09-06] MEDS: KETOROLAC TROMETHAMINE 15 MG/ML VIAL IV. SCH ×2 (01:40→08:53)
[2016-09-06] MEDS: D5W AND 1/2NSS + 20MEQ KCL 1,000 ML IV SCH (04:20)
[2016-09-06] MEDS: ACETAMINOPHEN 500 MG TAB PO SCH ×2 (05:57→13:34)
[2016-09-06 07:30] VITALS: BP 130/80; PULSE 72; TEMP 36.5; O2SAT 100
--- NOTE | 2016-09-06 07:47 | Orthopedic Progress Note ---
Orthopedic Progress Note Date of Service Sep 06, 2016. Subjective Post OP Day: 2 Reports: feeling well, Denies: chest pain, SOB, nausea / vomiting, light headedness, calf pain Additional Notes: FEELING MUCH BETTER TODAY. SYSTOLICS IN THE 110s Objective calves soft nontender, N/V intact, dressing C/D/I, A&O x3, toes mobile Date Time Temp Pulse Resp B/P (MAP) Pulse Ox O2 Delivery O2 Flow Rate FiO2 09/05/16 23:45 Room Air 09/05/16 23:10 36.5 66 16 115/63 (80) 96 Room Air 09/05/16 15:24 36.3 61 18 106/61 (76) 100 Room Air 09/05/16 15:20 Room Air 09/05/16 13:29 112/66 (81) 09/05/16 11:26 36.7 65 16 104/52 (69) 98 Room Air 09/05/16 08:30 98 Room Air Assessment & Plan Assessment: POD#2 SP LEFT TKA HYPOTENSION- resolved Inhouse Planning Pain Management: Celebrex, PO Tylenol, Oxy IR DVT Prophylaxis: TEDs, SCDs, ASA Discharge Planning Discharge Planning: home with home health (DC HOME TODAY)
[2016-09-06 08:25] VITALS: O2SAT 100
[2016-09-06] MEDS: ASPIRIN 81 MG ECTAB PO SCH (08:48)
[2016-09-06] MEDS: MULTIVITAMIN TAB PO SCH (08:49)
[2016-09-06] MEDS: PANTOprazole SOD 40 MG TAB PO SCH (08:50)
[2016-09-06 09:58] VITALS: BP 130/80; PULSE 72; TEMP 36.5; O2SAT 100
[2016-09-06] MEDS ORDERED: CeleBREX 200 MG CAP PO SCH (21:00)
--- NOTE | 2016-09-11 13:51 | DISCHARGE SUMMARY ---
DISCHARGE DIAGNOSIS: Degenerative joint disease left knee. SECONDARY DIAGNOSIS: Hypertension. CONSULTS: None. COMPLICATIONS: None. PROCEDURES: Left total knee arthroplasty performed by Dr. Willis Awad on 09/04/2016. BRIEF HISTORY: As dictated in the history and physical. HOSPITAL SUMMARY: The patient was admitted on the above-noted date and had the above-noted surgery performed which he tolerated well. On his first postoperative day, he was feeling well and had no complaints. He was having some postoperative hypotension and seemed better that morning. Systolics were ranging in the 100-90s. Calves were soft, nontender, neurovascularly intact. Dressings clean, dry and intact. Toes were mobile. His hemoglobin was 9.3 and he was started on physical therapy protocol and continued on DVT prophylaxis and pain management. By his second postoperative day, he was continuing to feel well and felt much better. Blood pressures were starting to increase with last BP being 115/63. He was progressing with his physical therapy. Dressings remaining stay intact. Toes were mobile. Calves were soft and nontender and it was felt that he could be discharged to home with home health services. For further review, please see chart. LAB AND X-RAY DATA: As per chart. DISCHARGE INSTRUCTIONS: The patient was discharged to home in satisfactory condition on 09/05/2016. DIET: Regular. ACTIVITY: Follow TK instruction sheets and special care instructions as noted. Follow up with Dr. Willis Awad in 2 weeks. The patient to call for appointment if one has not been made for you. DISCHARGE MEDICATIONS: Acetaminophen 1000 mg p.o. q. 8 hours for 30 days, aspirin 81 mg p.o. b.i.d., Celebrex 200 mg p.o. daily for 30 days, Zestoretic one tab p.o. q.a.m., Zofran 8 mg p.o. q. 8 hours p.r.n., senna 4 tabs p.o. b.i.d., tramadol 50 mg p.o. q. [address] Awad vitamin pack 1 packet p.o. daily.
== END 2016-09-06 13:39 | disposition home health service (06) | DRG 470 ==
LOC: C.ACU 06:10 → C.3E 06:30 → ENRESERV 10:57
PROVIDERS: ADMIT Orthopaedic Surgery; ATTEND Orthopaedic Surgery
PROC: 0SRD0J9 Replacement of Left Knee Joint with Synthetic Substitute, Cemented, Open Approach (ICD-10-PCS; principal; 2016-09-04 08:15)
DX: M17.12 Unilateral primary osteoarthritis, left knee (principal); I10 Essential (primary) hypertension; Z79.899 Other long term (current) drug therapy